=== PATIENT | male | born 1960 ===

== ENCOUNTER 2021-05-04 11:33 | Emergency (ER) | payer SELFPAY ==
[~2021-05-04] VITALS: Ht 188 cm; Wt 89.0 kg
[2021-05-04 11:38] VITALS: BP 115/70
== END 2021-05-04 12:18 | disposition home or self-care (01) ==
LOC: ED 12:10
DX: B34.9 Viral infection, unspecified (principal); Z20.822 Contact with and (suspected) exposure to COVID-19
CPT/HCPCS: 87635; 99283; U0003; U0005